=== PATIENT | female | born 1985 | race African-American/Black ===

== ENCOUNTER 2016-07-17 01:37 | Emergency (ER) | payer OTHER ==
[2016-07-17 02:13] VITALS: BMI 37.1
--- NOTE | 2016-07-17 03:24 | PDOC ---
History of Present Illness - General Chief Complaint: Edema Stated Complaint: SWELLING LT LEG S/P C/SECTION Time Seen by Provider: 07/17/16 02:21 History Source: Patient Exam Limitations: No Limitations - History of Present Illness Initial Comments: 07/17/16 03:20 30yo Female patient presents to ED c/o left lower extremity swelling beginning today. Patient states on Tuesday she had with blood clots in her Uterus that were cleaned out by her [facility] [place]. Patient states she called her doctor and was instructed to go to ED for evaluation. Patient denies any other complaints. Occurred: reports: this evening Severity: Yes: severe Lower Extremity Pain Location: left: leg Method of Injury: Yes: other (See HPI) Modifying Factors: worse with: None, cold therapy, immobilization, pain medication, rest, other Lower Ext. Injury Location - Specific Injury Location Legs: right: normal inspection, left: swelling, bilateral: non-tender, normal range of motion Extremity Pain Location - Extremity Pain Location Extremity Pain Locations: left: leg Past History - Travel Traveled outside of the country in the last 30 days: No Close contact w/someone who was outside of country & ill: No - Past Medical History Allergies/Adverse Reactions: Allergies Allergy/AdvReac Type Severity Reaction Status Date / Time acetaminophen AdvReac Hives Verified 07/17/16 02:11 Home Medications: Ambulatory Orders Vit/Iron Fumarate/FA [ Tablet] 1 tab PO DAILY 05/17/16 - Psycho/Social/Smoking Cessation Hx Suicidal Ideation: No Smoking History: Never smoked Have you smoked in the past 12 months: No Number of Cigarettes Smoked Daily: 6 Information on smoking cessation initiated: No Hx Alcohol Use: No Drug/Substance Use Hx: No Substance Use Type: None Review of Systems - Review of Systems Able to Perform ROS?: Yes Is the patient limited Bel[place]ian proficient: No Constitutional: No: Chills, Fever Musculoskeletal: Yes: Other (Lower extremity Swelling.) Integumentary: No: Bruising, Erythema, Rash Neurological: No: Headache, Seizure, Dizziness All Other Systems: Reviewed and Negative *Physical Exam - Vital Signs Last Vital Signs Temp Pulse Resp BP Pulse Ox 97.1 F L 89 20 134/91 99 07/17/16 02:11 07/17/16 02:11 07/17/16 02:11 07/17/16 02:11 07/17/16 02:11 - Physical Exam General Appearance: Yes: Nourished, Appropriately Dressed. No: Apparent Distress, Mild Distress, Moderate Distress, Severe Distress Neck: positive: Trachea midline, Supple. negative: Decreased range of motion, Stridor, Lymphadenopathy (R), Lymphadenopathy (L), Thyromegaly Respiratory/Chest: positive: Lungs Clear, Normal Breath Sounds. negative: Respiratory Distress, Accessory Muscle Use, Labored Respiration, Rapid RR, Stridor, Wheezing Cardiovascular: positive: Regular Rhythm, Regular Rate Gastrointestinal/Abdominal: positive: Normal Bowel Sounds, Soft. negative: Distended, Guarding, Rebound, Tenderness Musculoskeletal: positive: Normal Inspection. negative: CVA Tenderness Extremity: positive: Normal Capillary Refill, Normal Inspection, Normal Range of Motion, Pedal Edema, Swelling (3+ pitting ). negative: Calf Tenderness ( Negative Mariah's sign), Erythema, Inflammation Integumentary: positive: Normal Color, Dry, Warm Neurologic: positive: calender worker helper II-XII NML intact, Fully Oriented, Alert, Normal Mood/ Affect, Normal Response, Motor Strength 5/5 ED Treatment Course - LABORATORY CBC & Chemistry Diagram: 07/17/16 03:26 07/17/16 03:26 - RADIOLOGY Radiology Studies Ordered: Category Date Time Status DUPLEX VASCUL US-1 LEG [US] Stat Ultrasound 07/17/16 03:05 Ordered Progress Note - Progress Note Progress Note: 0641: Patient reports history of anemia, but received iron infusion and not blood transfusion. Patient states she would accept blood transfusion if needed.
[2016-07-17 03:34] LABS: MCH 29.4 pg (25.7-33.7); MCHC 33.1 g/dl (32.0-36.0); MEAN CELL VOLUME 88.9 fl (80-96); MEAN PLT VOLUME 6.9 fl (7.5-11.1); PLATELET COUNT 359 K/MM3 (134-434); RDW 13.7 % (11.6-15.6)
[2016-07-17 03:48] LABS: INR 0.99 (0.82-1.09); PROTHROMBIN TIME (PATIENT) 10.9 SEC (9.98-11.88)
[2016-07-17 03:51] LABS: ACTIVATED PTT 37.8 SECONDS (26.9-34.4)
[2016-07-17 03:58] LABS: ALBUMIN 2.6 g/dl (3.4-5.0); ALK PHOS 99 U/L (45-117); ANION GAP 12 (8-16); BILIRUBIN,TOTAL 0.3 mg/dL (0.2-1.0); CALCIUM 8.5 mg/dL (8.5-10.1); CO2 25 mmol/L (21-32); COCKROFT - GAULT 227.8425; CREATININE 0.6 mg/dL (0.55-1.02); GLUCOSE,RANDOM 76 mg/dL (74-106); SGOT/AST 23 U/L (15-37); SGPT/ALT 21 U/L (12-78); TOT PROT 5.7 g/dl (6.4-8.2)
--- NOTE | 2016-07-17 08:02 | PDOC ---
*Physical Exam - Vital Signs Last Vital Signs Temp Pulse Resp BP Pulse Ox 97.1 F L 89 20 134/91 99 07/17/16 02:11 07/17/16 02:11 07/17/16 02:11 07/17/16 02:11 07/17/16 02:11 - Physical Exam Comments: 07/17/16 08:02 Sign-out received from outgoing ER provider Hung. Pt interviewed and examined. Ancillary studies reviewed. Patient awaiting duplex US of LE to r/o DVT. If negative, patient needs PRBC. 07/17/16 10:16 U/S negative for DVT. Patient states her leg is less swollen and feels better at this time. -2 units PRBC ordered. Patient reports that she has been getting iron transfusions and "my blood is supposed to come up" per her OB. However patient reports that she is still passing "some clots and bleeding" although not as much as she was previously. Patient's OB Dr. Durán paged for consult. Discusesd case with Dr. Carreon; as patient is not actively bleeding, will discharge to home with instructions to continue taking iron pills. Patient verbalized understanding and agrees to plan. ED Treatment Course - LABORATORY CBC & Chemistry Diagram: 07/17/16 03:26 07/17/16 03:26 - ADDITIONAL ORDERS Additional order review: Laboratory Results 07/17/16 07/17/16 07/17/16 04:28 03:26 03:26 INR 0.99 PTT (Actin FS) 37.8 H Sodium 143 Potassium 4.0 Chloride 106 Carbon Dioxide 25 Anion Gap 12 BUN 10 D Creatinine 0.6 D Creat Clearance w eGFR > 60 Random Glucose 76 D Calcium 8.5 Total Bilirubin 0.3 D AST 23 D ALT 21 Alkaline Phosphatase 99 D Total Protein 5.7 L Albumin 2.6 L Blood Type O POSITIVE Antibody Screen Negative 07/17/16 03:26 RBC 2.32 L D MCV 88.9 MCHC 33.1 RDW 13.7 MPV 6.9 L D Neutrophils % 73.0 Lymphocytes % 18.0 D Monocytes % 3.0 L Eosinophils % 6.0 H D *DC/Admit/Observation/Transfer Diagnosis at time of Disposition: Leg pain, left, Vaginal bleeding, Anemia - Discharge Dispostion Disposition: HOME Admit: No - Referrals Referrals: Armando Pak MD [Primary Care Provider] - Tom Carreon MD [Staff Physician] - - Patient Instructions Printed Discharge Instructions: DI for Iron Deficiency Anemia-Adult Additional Instructions: Please take iron pills as directed by Dr. Venegas. Please follow up with Dr. Venegas within the next week for further evaluation. If you experience any severe vaginal bleeding (more than one soaked pad an hour), nausea, vomiting, diarrhea, fever, chills, dizziness, lightheadedness, palpitations, shortness of breath, or any new or worsening symptoms, please return to the ER.
[2016-07-17 08:26] VITALS: TEMP 97.9
--- NOTE | 2016-07-17 13:08 | CONSULT ---
Consultation: REQUESTING PROVIDER:LAURA Renae ( Dr Paniagua) CONSULT REQUEST: We have been asked to medically evaluate this patient for ( specify). HISTORY OF PRESENT ILLNESS: Lower extremity swelling s/p . Denies chest pain, SOB or palpitations. REVIEW OF SYSTEMS: CONSTITUTIONAL: Absent: fever, chills, diaphoresis, generalized weakness, malaise, loss of appetite, weight change HEENT: Absent: rhinorrhea, nasal congestion, throat pain, throat swelling, difficulty swallowing, mouth swelling, ear pain, eye pain, visual changes CARDIOVASCULAR: Absent: chest pain, syncope, palpitations, irregular heart rate, lightheadedness , peripheral edema RESPIRATORY: Absent: cough, shortness of breath, dyspnea with exertion, orthopnea, wheezing, stridor, hemoptysis GASTROINTESTINAL: Absent: abdominal pain, abdominal distension, nausea, vomiting, diarrhea, constipation, melena, hematochezia GENITOURINARY: Absent: dysuria, frequency, urgency, hesitancy, hematuria, flank pain, genital pain MUSCULOSKELETAL: Absent: myalgia, arthralgia, joint swelling, back pain, neck pain SKIN: Absent: rash, itching, pallor HEMATOLOGIC/IMMUNOLOGIC: Absent: easy bleeding, easy bruising, lymphadenopathy, frequent infections ENDOCRINE: Absent: unexplained weight gain, unexplained weight loss, heat intolerance, cold intolerance NEUROLOGIC: Absent: headache, focal weakness or paresthesias, dizziness, unsteady gait, seizure, mental status changes, bladder or bowel incontinence PSYCHIATRIC: Absent: anxiety, depression, suicidal or homicidal ideation, hallucinations. PHYSICAL EXAMINATION Vital Signs - 24 hr 07/17/16 07/17/16 02:11 07:45 Temperature 97.1 F L 97.9 F Pulse Rate 89 Pulse Rate [ 78 Apical] Respiratory 20 18 Rate Blood Pressure 134/91 Blood Pressure 124/60 [Left Arm] O2 Sat by Pulse 99 99 Oximetry (%) GENERAL: Awake, alert, and fully oriented, in no acute distress. HEAD: Normal with no signs of trauma. EYES: Pupils equal, round and reactive to light, extraocular movements intact, sclera anicteric, conjunctiva clear. No lid lag. EARS, NOSE, THROAT: Ears normal, nares patent, oropharynx clear without exudates. Moist mucous membranes. NECK: Normal range of motion, supple without lymphadenopathy, JVD, or masses. LUNGS: Breath sounds equal, clear to auscultation bilaterally. No wheezes, and no crackles. No accessory muscle use. HEART: Regular rate and rhythm, normal S1 and S2 without murmur, rub or gallop. ABDOMEN: Soft, nontender, not distended, normoactive bowel sounds, no guarding, no rebound, no masses. No hepatomegaly or splenomegaly. MUSCULOSKELETAL: Normal range of motion at all joints. No bony deformities or tenderness. No CVA tenderness. UPPER EXTREMITIES: 2+ pulses, warm, well-perfused. No cyanosis. No clubbing. Cap refill <2 seconds. No peripheral edema. LOWER EXTREMITIES: 2+ pulses, warm, well-perfused. No calf tenderness. No peripheral edema. NEUROLOGICAL: Cranial nerves II-XII intact. Normal speech. Normal gait. PSYCHIATRIC: Cooperative. Good eye contact. Appropriate mood and affect. SKIN: Warm, dry, normal turgor, no rashes or lesions noted. Laboratory Results - last 24 hr 07/17/16 07/17/16 07/17/16 03:26 03:26 03:26 WBC 10.0 D RBC 2.32 L D Hgb 6.8 L* D Hct 20.7 L D MCV 88.9 MCHC 33.1 RDW 13.7 Plt Count 359 MPV 6.9 L D Neutrophils % 73.0 Lymphocytes % 18.0 D Monocytes % 3.0 L Eosinophils % 6.0 H D Nucleated RBCs 1 H INR 0.99 PTT (Actin FS) 37.8 H Sodium 143 Potassium 4.0 Chloride 106 Carbon Dioxide 25 Anion Gap 12 BUN 10 D Creatinine 0.6 D Creat Clearance w eGFR > 60 Random Glucose 76 D Calcium 8.5 Total Bilirubin 0.3 D AST 23 D ALT 21 Alkaline Phosphatase 99 D Total Protein 5.7 L Albumin 2.6 L Blood Type Antibody Screen Crossmatch 07/17/16 04:28 WBC RBC Hgb Hct MCV MCHC RDW Plt Count MPV Neutrophils % Lymphocytes % Monocytes % Eosinophils % Nucleated RBCs INR PTT (Actin FS) Sodium Potassium Chloride Carbon Dioxide Anion Gap BUN Creatinine Creat Clearance w eGFR Random Glucose Calcium Total Bilirubin AST ALT Alkaline Phosphatase Total Protein Albumin Blood Type O POSITIVE Antibody Screen Negative Crossmatch See Detail ASSESSMENT/PLAN: Dispo: Patient is with chronic h/o iron deficiency anemia and is hemodynamically stable s/p and d&c. Patient has normal amount of post bleeding and risk of transfusion outweigh the benefits at this time. DVT ruled out which was the initial concern for her presentation to the hospital . Discharge patient and recommend ferrous sulfate daily, if patient is symptomatic dizziness or palpitations then consider transfusing at that time. Thank you for this consultative opportunity. Visit type - Emergency Visit Emergency Visit: Yes Care time: The patient presented to the Emergency Department on the above date and was hospitalized for further evaluation of their emergent condition. - New Patient This patient is new to me today: Yes Date on this admission: 07/17/16 - Critical Care Critical Care patient: No
[2016-07-17 13:48] VITALS: BP 125/70; PULSE 81
== END 2016-07-17 13:51 | disposition home or self-care (01) ==
LOC: JER 01:37
DX: O72.2 Delayed and secondary postpartum hemorrhage (principal); O90.81 Anemia of the puerperium; D50.8 Other iron deficiency anemias
CPT/HCPCS: 36415; 80053; 85025; 85610; 85730; 86850; 86900; 86901; 86922; 93971-TC; 99285-25

== ENCOUNTER 2019-01-19 14:31 | Emergency (ER) | payer OTHER ==
[2019-01-19 14:37] VITALS: BP 169/79; PULSE 77; TEMP 98; BMI 36.8
[2019-01-19] MEDS ORDERED: KETOROLAC TROMETHAMINE 30 MG/1 ML VIAL IM ONE (14:37)
--- NOTE | 2019-01-19 14:37 | PDOC ---
Rapid Medical Evaluation Medical Evaluation: Allergies Allergy/AdvReac Type Severity Reaction Status Date / Time acetaminophen AdvReac Hives Verified 07/17/16 02:11 I have performed a brief in-person evaluation of this patient. The patient presents with a chief complaint of: c/o L sided toothache x 4 days; is pending to go to oral surgeon for removal of wisdom tooth Pertinent physical exam findings: In NAD, plaque along teeth, +cracked L lower tooth I have ordered the following: Toradol The patient will proceed to the ED for further evaluation. 01/19/19 14:34
[2019-01-19] MEDS ORDERED: KETOROLAC TROMETHAMINE 30 MG/1 ML VIAL ONE (15:37)
[2019-01-19] MEDS ORDERED: ACETAMINOPHEN WITH CODEINE 300MG/30MG TABLET PO ONE (16:18)
--- NOTE | 2019-01-19 16:32 | PDOC ---
History of Present Illness - General Chief Complaint: Toothache Stated Complaint: TOOTHACHE Time Seen by Provider: 01/19/19 14:34 History Source: Patient Exam Limitations: No Limitations - History of Present Illness Initial Comments: 01/19/19 16:34 33-year-old female denies past medical history complains of left lower dental pain x4 days. Has been taking amoxicillin twice a day, unknown dose and ibuprofen 600 mg twice a day with minimal relief of pain. Pain worsened today, she called oral surgeon and scheduled an appointment for January 24. He had dental pain to the same area September 2018, was advised to see the oral surgeon at that time however given pain had resolved patient never followed up. Denies trauma, fever, chills, ear pain or any other complaints. Last dose of Naprosyn 500 mg 1 tablet today at approximately 9 am. ROS: GENERAL/CONSTITUTIONAL: No fever, chills, weakness, dizziness HEAD, EYES, EARS, NOSE AND THROAT: Dental pain, no ear pain or discharge, No sore throat CARDIOVASCULAR: No chest pain RESPIRATORY: No shortness of breath or cough GASTROINTESTINAL: No pain, nausea, vomiting, diarrhea or constipation GENITOURINARY: No dysuria MUSCULOSKELETAL: No neck or back pain SKIN: No rash NEUROLOGIC: No headache, vertigo, loss of consciousness, or loss of sensation PE: GENERAL: well-appearing, NAD, speaking full sentences HEAD: NCAT EYES: Pupils equal, round and reactive to light, sclera anicteric, conjunctiva clear ENT: pharynx: no erythema, no exudate, poor dentition, tooth #35-37 missing, erythema, swelling, tenderness to palpation to left lower gum area below tooth # 35-37, no fluctuance, no pus pocket noted. NECK: supple CHEST: nontender RESP: clear, no w/r/r CARDIO: rrr, no m/g/r ABD: +BS, soft, nontender, non distended BACK: no midline spinal ttp, no CVAT EXTREMITIES: Normal range of motion, no edema NEUROLOGICAL: Normal speech, normal gait SKIN: No facial swelling, warm, Dry Past History - Past Medical History Allergies/Adverse Reactions: Allergies Allergy/AdvReac Type Severity Reaction Status Date / Time acetaminophen AdvReac Hives Verified 01/19/19 14:37 Home Medications: Ambulatory Orders Vit/Iron Fum/Folic AC [ Tablet] 1 tab PO DAILY 03/20/17 Acetaminophen W/ Codeine #3 [Tylenol # 3 -] 1 tab PO Q6H PRN 5 Days #12 tablet MDD 4 01/19/19 Anemia: Yes COPD: No - Surgical History Abdominal Surgery: Yes - Psycho Social/Smoking Cessation Hx Smoking History: Current every day smoker Have you smoked in the past 12 months: No Number of Cigarettes Smoked Daily: 10 Information on smoking cessation initiated: No Hx Alcohol Use: No Drug/Substance Use Hx: No Substance Use Type: None *Physical Exam - Vital Signs Last Vital Signs Temp Pulse Resp BP Pulse Ox 98 F 77 18 169/79 98 01/19/19 14:33 01/19/19 14:33 01/19/19 14:33 01/19/19 14:33 01/19/19 14:33 ED Treatment Course - Medications Given in the ED: ED Medications Discontinued Medications Generic Name Dose Route Start Last Admin Trade Name Freq PRN Reason Stop Dose Admin Ketorolac Tromethamine 30 mg 01/19/19 14:37 01/19/19 15:40 Toradol Injection - IM 01/19/19 14:38 30 mg ONCE ONE Administration Medical Decision Making - Medical Decision Making 01/19/19 16:40 33-year-old female with poor dentition presents with dental pain. Exam consistent with dental infection to tooth #35-37 A/P: Dental infection Will prescribe amoxicillin 500 mg 3 times daily for 7 days. Also will prescribe Tylenol with codeine every 6 hours as needed for pain. Patient denies allergy to acetaminophen, she reports that she has taken acetaminophen in the past without a reaction. Advised to keep appointment with oral surgeon on January 24. Understands return precautions. Discharge - Discharge Information Problems reviewed: Yes Clinical Impression/Diagnosis: Pain, dental Condition: Stable Disposition: HOME - Admission No - Follow up/Referral - Patient Discharge Instructions Additional Instructions: Take amoxicillin and acetaminophen with codeine as directed. Keep your appointment with the oral surgeon scheduled for January 24. Return to the ED if worsening pain, facial swelling, fever, chills or worsening symptoms. - Post Discharge Activity
[2019-01-19] MEDS ORDERED: ACETAMINOPHEN WITH CODEINE 300MG/30MG TABLET ONE (16:37)
== END 2019-01-19 17:14 | disposition home or self-care (01) ==
LOC: JERFT 14:31
PROC: 3E0233Z Introduction of Anti-inflammatory into Muscle, Percutaneous Approach (ICD-10-PCS; principal; 2019-01-19)
DX: K04.7 Periapical abscess without sinus (principal); Z88.6 Allergy status to analgesic agent
CPT/HCPCS: 96372; 99281-25

== ENCOUNTER 2020-08-15 20:57 | Emergency (ER) | payer OTHER ==
[2020-08-15 21:12] VITALS: BP 123/77; PULSE 78; TEMP 98; BMI 37.1
[2020-08-15] MEDS ORDERED: KETOROLAC TROMETHAMINE 60 MG/2 ML VIAL IM ONE (22:21)
[2020-08-15] MEDS ORDERED: oxyCODONE HCL 5 MG TABLET PO ONE (22:21)
[2020-08-15] MEDS ORDERED: oxyCODONE HCL 5 MG TABLET ONE (22:39)
[2020-08-15] MEDS ORDERED: KETOROLAC TROMETHAMINE 30 MG/1 ML VIAL ONE (22:39)
== END 2020-08-15 22:49 | disposition home or self-care (01) ==
LOC: JERFT 20:57
PROC: 3E0233Z Introduction of Anti-inflammatory into Muscle, Percutaneous Approach (ICD-10-PCS; principal; 2020-08-15)
DX: K08.89 Other specified disorders of teeth and supporting structures (principal)
CPT/HCPCS: 99284-25

== ENCOUNTER 2021-12-19 20:13 | Emergency (ER) | payer OTHER ==
[2021-12-19 20:18] VITALS: BP 140/75; PULSE 91; RESP 18; TEMP 98.3; BMI 37.1
[2021-12-19] MEDS ORDERED: KETOROLAC TROMETHAMINE 30 MG/1 ML VIAL IM ONE (20:57)
[2021-12-19] MEDS ORDERED: KETOROLAC TROMETHAMINE 30 MG/1 ML VIAL ONE (20:59)
== END 2021-12-19 21:39 | disposition home or self-care (01) ==
LOC: JERFT 20:13
PROC: 3E023GC Introduction of Other Therapeutic Substance into Muscle, Percutaneous Approach (ICD-10-PCS; principal; 2021-12-19)
DX: K08.89 Other specified disorders of teeth and supporting structures (principal)
CPT/HCPCS: 99284-25

== ENCOUNTER 2022-08-02 14:06 | Emergency (ER) | payer OTHER ==
[2022-08-02 14:13] VITALS: BP 138/77; PULSE 77; RESP 18; TEMP 98; BMI 38.7
[2022-08-02] MEDS ORDERED: ACETAMINOPHEN 500 MG TABLET (FP) PO ONE (15:55)
[2022-08-02] MEDS ORDERED: KETOROLAC TROMETHAMINE 30 MG/1 ML VIAL IM ONE (15:55)
[2022-08-02] MEDS ORDERED: LIDOCAINE 5% TOPICAL PATCH TP ONE (15:55)
[2022-08-02] MEDS ORDERED: ACETAMINOPHEN 500 MG TABLET (FP) ONE (16:07)
[2022-08-02] MEDS ORDERED: LIDOCAINE 5% TOPICAL PATCH ONE (16:07)
[2022-08-02] MEDS ORDERED: KETOROLAC TROMETHAMINE 30 MG/1 ML VIAL ONE (16:07)
[2022-08-02] MEDS ORDERED: LIDOCAINE PATCH REMOVAL MC SCH (22:00)
== END 2022-08-02 16:43 | disposition home or self-care (01) ==
LOC: JERFT 14:06
PROC: 3E0233Z Introduction of Anti-inflammatory into Muscle, Percutaneous Approach (ICD-10-PCS; principal; 2022-08-02)
DX: M54.2 Cervicalgia (principal); S16.1XXA Strain of muscle, fascia and tendon at neck level, initial encounter; R51.9 Headache, unspecified; X50.0XXA Overexertion from strenuous movement or load, initial encounter
CPT/HCPCS: 99284-25

== ENCOUNTER 2023-04-10 17:43 | Observation (INO) | payer OTHER ==
[2023-04-10] MEDS ORDERED: METOCLOPRAMIDE HCL INJECTION 10 MG/2 ML VIAL ONE (20:31)
[2023-04-10] MEDS ORDERED: ACETAMINOPHEN INJECTION 100 ML IVPB ONE (20:32)
[2023-04-10 20:37] LABS: BASO % 0.5 % (0-2.0); EOS % 0.1 % (0-4.5); HEMATOCRIT 35.3 % (32.4-45.2); HEMOGLOBIN 11.6 GM/dL (10.7-15.3); LYMPH % 8.6 % (8-40); MCH 29.2 pg (25.7-33.7); MCHC 32.9 g/dl (32.0-36.0); MEAN PLT VOLUME 6.8 fl (7.5-11.1); MONO % 2.5 % (3.8-10.2); NEUT % 88.3 % (42.8-82.8); PLATELET COUNT 592 10^3/uL (134-434); RBC 3.97 M/mm3 (3.60-5.2); RDW 14.8 % (11.6-15.6); WHITE BLOOD COUNT 17.9 K/mm3 (4.0-10.0)
[2023-04-10] MEDS: METOCLOPRAMIDE HCL INJECTION 10 MG/2 ML VIAL IVPUSH ONE (20:40)
[2023-04-10] MEDS: LACTATED RINGERS SOLUTION 1000 ML INFUS.BAG IV ONE (20:40)
[2023-04-10] MEDS: ACETAMINOPHEN 1000 MG/100 ML BAG IVPB ONE (20:40)
[2023-04-10] MEDS ORDERED: AMPICILLIN NA/SULBACTAM NA 1.5 GM VIAL ONE (21:22)
[2023-04-10] MEDS: AMPICILLIN NA/SULBACTAM NA 1.5 GM in SODIUM CHLORIDE 100 ML IVPB ONE (21:34)
[2023-04-10 21:44] LABS: EPI CELLS 21 /uL (0-25.1); HYALINE CASTS 2 /uL (0-3.1); URINE APPEARANCE CLOUDY; URINE BACTERIA >9,000 /uL (0-1359); URINE BILIRUBIN NEGATIVE (NEGATIVE); URINE COLOR YELLOW; URINE GLUCOSE (UA) NEGATIVE (NEGATIVE); URINE KETONE NEGATIVE (NEGATIVE); URINE LEUK ESTERASE TRACE (NEGATIVE); URINE NITRITE POSITIVE (NEGATIVE); URINE PROTEIN TRACE (NEGATIVE); URINE RBC 9 /uL (0-23.9); URINE WBC 70 /uL (0-25.8)
[2023-04-10 21:52] LABS: POTASSIUM 3.8 mmol/L (3.5-5.1)
[2023-04-10 21:54] LABS: CALCIUM 9.4 mg/dL (8.5-10.1)
[2023-04-10 21:55] LABS: ALBUMIN 3.8 g/dl (3.4-5.0); BLOOD UREA NITROGEN 15.7 mg/dL (7-18)
[2023-04-10 21:58] LABS: CREATININE 0.9 mg/dL (0.55-1.3)
[2023-04-10 21:59] LABS: TOT PROT 7.4 g/dl (6.4-8.2)
[2023-04-10 22:00] LABS: BILIRUBIN,TOTAL 0.7 mg/dL (0.2-1)
[2023-04-10] MEDS ORDERED: CEFTRIAXONE 1 GM/50 ML BAG ONE (22:48)
[2023-04-10] MEDS: CEFTRIAXONE 1 GM in DEXTROSE 5%-WATER - 50 ML IVPB ONE (22:53)
[2023-04-11] MEDS: SODIUM CHLORIDE 1,000 ML IV SCH (01:13)
[2023-04-11] MEDS ORDERED: METOCLOPRAMIDE HCL INJECTION 10 MG/2 ML VIAL IVPUSH PRN (04:49)
[2023-04-11] MEDS ORDERED: ACETAMINOPHEN 325 MG TABLET (FP) PO PRN (04:53)
[2023-04-11 07:16] LABS: BASO % 0.3 % (0-2.0); EOS % 0.5 % (0-4.5); HEMOGLOBIN 10.5 GM/dL (10.7-15.3); LYMPH % 23.9 % (8-40); MCH 29.3 pg (25.7-33.7); MEAN CELL VOLUME 88.8 fl (80-96); MEAN PLT VOLUME 6.7 fl (7.5-11.1); MONO % 6.8 % (3.8-10.2); NEUT % 68.5 % (42.8-82.8); PLATELET COUNT 520 10^3/uL (134-434); RDW 13.7 % (11.6-15.6); WHITE BLOOD COUNT 9.7 K/mm3 (4.0-10.0)
[2023-04-11 07:40] LABS: POTASSIUM 3.6 mmol/L (3.5-5.1)
[2023-04-11 07:42] VITALS: RESP 18
[2023-04-11 07:43] LABS: CALCIUM 9.4 mg/dL (8.5-10.1)
[2023-04-11 07:44] LABS: ALBUMIN 3.4 g/dl (3.4-5.0); BLOOD UREA NITROGEN 13.6 mg/dL (7-18); MAGNESIUM 1.9 mg/dL (1.8-2.4)
[2023-04-11 07:47] LABS: CREATININE 0.9 mg/dL (0.55-1.3)
[2023-04-11] MEDS: ENOXAPARIN NA (PORCINE) 40 MG/0.4 ML DISP.SYRIN SQ SCH (10:02)
[2023-04-11] MEDS: CEFTRIAXONE 1 GM in DEXTROSE 5%-WATER - 50 ML IVPB SCH (10:03)
[2023-04-11] MEDS ORDERED: CEFTRIAXONE 1 GM/50 ML BAG ONE (10:04)
[2023-04-11 13:11] VITALS: TEMP 98
[2023-04-11 18:21] VITALS: BP 137/76; PULSE 78; BMI 27.4
== END 2023-04-11 18:28 | disposition left against medical advice (07) ==
LOC: JER 17:43 → JERBED 22:00 → J8W 04-11 13:51
PROVIDERS: ADMIT Internal Medicine
PROC: 3E03329 Introduction of Other Anti-infective into Peripheral Vein, Percutaneous Approach (ICD-10-PCS; principal; 2023-04-10)
PROC: 3E033NZ Introduction of Analgesics, Hypnotics, Sedatives into Peripheral Vein, Percutaneous Approach (ICD-10-PCS; 2023-04-10)
PROC: 3E023GC Introduction of Other Therapeutic Substance into Muscle, Percutaneous Approach (ICD-10-PCS; 2023-04-10)
PROC: 3E0337Z Introduction of Electrolytic and Water Balance Substance into Peripheral Vein, Percutaneous Approach (ICD-10-PCS; 2023-04-10)
DX: N39.0 Urinary tract infection, site not specified (principal); D72.829 Elevated white blood cell count, unspecified; D64.9 Anemia, unspecified; Z87.891 Personal history of nicotine dependence
CPT/HCPCS: 0241U-QW; 36415; 76775-TC; 80053; 81003; 83690; 83735; 84100; 84703; 85025; 87040; 87086; 87186; 93005; 93010; 96365; 96367; 96372; 96375; 99285-25; G0378; J0131